=== PATIENT | male | born 1990 ===

== ENCOUNTER 2016-09-07 15:09 | Emergency (ER) | payer OTHER ==
[2016-09-07 15:22] VITALS: BP 141/77; PULSE 73; RESP 19; TEMP 98.5; O2SAT 100
--- NOTE | 2016-09-07 15:42 | ED PDOC ---
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 pt admits to pain, swelling and burning sensation at area of lesion. denies fever chills nausea vomiting SOB, CP , abd pain for swelling to lips, tongue, finger feet hand. Past Medical History Reviewed: Historical Data, Nursing Documentation, Vital Signs Vital Signs: Last Vital Signs Temp 98.5 F 09/07/16 15:18 Pulse 73 09/07/16 15:18 Resp 19 09/07/16 15:18 BP 141/77 09/07/16 15:18 Pulse Ox 100 09/07/16 15:18 - Medical History PMH: No Chronic Diseases Denies: HTN - Family History Family History: States: Unknown Family Hx Denies: Hypertension - Immunization History Hx Tetanus Toxoid Vaccination: No Hx Influenza Vaccination: No Hx Pneumococcal Vaccination: No - Home Medications Home Medications: Ambulatory Orders Medication Instructions Recorded Acyclovir [Zovirax] 400 mg PO TID #15 tablet 04/24/16 Calamine/Pramoxine [Caladryl] 180 ml TP DAILY #1 bottle 09/07/16 Methylprednisolone [Medrol Dose 4 mg PO DAILY #21 mg 09/07/16 Pack (21 tabs)] - Allergies Allergies/Adverse Reactions: Allergies Allergy/AdvReac Type Severity Reaction Status Date / Time No Known Allergies Allergy Verified 04/24/16 11:28 Review of Systems ROS Statement: Except As Marked, All Systems Reviewed And Found Negative Skin: Positive for: Lesions Physical Exam - Reviewed Nursing Documentation Reviewed: Yes Vital Signs Reviewed: Yes - Physical Exam Appears: Positive for: Well, Non-toxic, No Acute Distress Skin: Positive for: Normal Color, Warm, Rash (noted fidduse to forehead, neck and isolated area of forearms: papula red rashed some coalasce some are singular. none are esicelar excoriation noted. no swelling noted. ) Cardiovascular/Chest: Positive for: Regular Rate, Rhythm Respiratory: Positive for: CNT, Normal Breath Sounds Neurologic/Psych: Positive for: Alert, Oriented - ECG O2 Sat by Pulse Oximetry: 100 Medical Decision Making Medical Decision Making: dx: poision michelle tx: medrol dose pack and caladryl Disposition - Clinical Impression Clinical Impression: Poison michelle - Patient ED Disposition Is Patient to be Admitted: No Counseled Patient/Family Regarding: Diagnosis, Need For Followup, Rx Given - Disposition [facility]errals: [facility] [Outside] Disposition: Routine/Home Disposition Time: 15:45 Condition: STABLE Prescriptions: Calamine/Pramoxine [Caladryl] 180 ml TP DAILY #1 bottle Methylprednisolone [Medrol Dose Pack (21 tabs)] 4 mg PO DAILY #21 mg Instructions: Poison Michelle (ED) Forms: [facility] ED School/Work Excuse Print Language: [place]
== END 2016-09-07 15:59 | disposition home or self-care (01) ==
LOC: H.ER 15:09
DX: L23.7 Allergic contact dermatitis due to plants, except food (principal)

== ENCOUNTER 2018-02-09 23:38 | Emergency (ER) | payer SELFPAY ==
--- NOTE | 2018-02-10 01:18 | ED PDOC ---
HPI: Hypertension/Hypotension Time Seen by Provider: 02/10/18 00:12 Chief Complaint (Nursing): Palpitations Chief Complaint (Provider): palpitations History Per: Patient History/Exam Limitations: no limitations Onset/Duration Of Symptoms: Hrs (2) Current Symptoms Are (Timing): Still Present Exacerbating Factor(s): Pos: Recent Street Drug Use Additional Complaint(s): 27 y/o male presents for evaluation of palpitations x 2 hours. Patient states symptoms began 15 minutes after smoking marijuana for the first time. Patient states he felt lightheaded like he was going to pass out. Denies fever, shortness of breath, leg pain/swelling, alcohol use, or other recreational drug use. Past Medical History Reviewed: Historical Data, Nursing Documentation, Vital Signs Vital Signs: Last Vital Signs Temp 98 F 02/09/18 23:55 Pulse 122 H 02/09/18 23:55 Resp 20 02/09/18 23:55 BP 164/96 H 02/09/18 23:55 Pulse Ox 100 02/09/18 23:55 - Medical History PMH: No Chronic Diseases Denies: HTN - Surgical History Surgical History: No Surg Hx - Family History Family History: States: Unknown Family Hx Denies: Hypertension - Immunization History Hx Tetanus Toxoid Vaccination: No Hx Influenza Vaccination: No Hx Pneumococcal Vaccination: No - Home Medications Home Medications: Ambulatory Orders Medication Instructions Recorded Acyclovir [Zovirax] 400 mg PO TID #15 tablet 04/24/16 Calamine/Pramoxine [Caladryl] 180 ml TP DAILY #1 bottle 09/07/16 Methylprednisolone [Medrol Dose 4 mg PO DAILY #21 mg 09/07/16 Pack (21 tabs)] - Allergies Allergies/Adverse Reactions: Allergies Allergy/AdvReac Type Severity Reaction Status Date / Time No Known Allergies Allergy Verified 02/09/18 23:55 Review of Systems ROS Statement: Except As Marked, All Systems Reviewed And Found Negative Cardiovascular: Positive for: Palpitations Physical Exam - Reviewed Nursing Documentation Reviewed: Yes Vital Signs Reviewed: Yes - Physical Exam Appears: Positive for: Well, Non-toxic, No Acute Distress Head Exam: Positive for: ATRAUMATIC, NORMAL INSPECTION, NORMOCEPHALIC Skin: Positive for: Normal Color Eye Exam: Positive for: Normal appearance ENT: Positive for: Normal ENT Inspection Cardiovascular/Chest: Positive for: Regular Rate, Rhythm Respiratory: Positive for: Normal Breath Sounds Gastrointestinal/Abdominal: Positive for: Normal Exam Back: Positive for: Normal Inspection Neurologic/Psych: Positive for: Alert, Oriented (x3) - ECG ECG: Positive for: Viewed By Me (reviewed by ED attending) ECG Rhythm: Positive for: Sinus Tachycardia O2 Sat by Pulse Oximetry: 100 - Progress ED Course And Treament: -ekg -PO challenge 3:30 Patient resting comfortably; states he is feeling better. No current complaints. Vitals improved Patient educated on findings, discharged with instructions to follow up PMD wit hin 2-3 days Advised to avoid marijuana use. Return precautions given Disposition - Clinical Impression Clinical Impression: Cannabis abuse, Anxiety - Patient ED Disposition Is Patient to be Admitted: No Counseled Patient/Family Regarding: Studies Performed, Diagnosis, Need For Followup - Disposition Disposition: Routine/Home Disposition Time: 03:42 Condition: IMPROVED Instructions: Marijuana Use and Addiction Print Language: [place]
[2018-02-10 03:44] VITALS: RESP 14
[2018-02-10 07:04] VITALS: BP 126/59; PULSE 78; TEMP 98.1; O2SAT 99
== END 2018-02-10 04:25 | disposition home or self-care (01) ==
LOC: H.ER 23:38
DX: F12.10 Cannabis abuse, uncomplicated (principal); F41.9 Anxiety disorder, unspecified; I10 Essential (primary) hypertension